=== PATIENT | male | born 1980 | race Caucasian/White ===

== ENCOUNTER → 2018-12-06 14:06 | Outpatient (CLI) | payer BC, SELFPAY ==
[2018-12-06 09:01] VITALS: BMI 29.9
== END ==
PROVIDERS: Referring Provider Physician Assistant Surgical; Visit Provider Physician Assistant Surgical
DX: J02.9 Acute pharyngitis, unspecified (principal)
CPT/HCPCS: 87081

== ENCOUNTER → 2018-12-18 13:54 | Outpatient (CLI) | payer BC, SELFPAY ==
[2018-12-18 10:50] VITALS: BMI 29.9
== END ==
PROVIDERS: Referring Provider Physician Assistant; Visit Provider Physician Assistant
DX: J02.9 Acute pharyngitis, unspecified (principal)
CPT/HCPCS: 87081

== ENCOUNTER 2021-05-01 22:35 | Emergency (ER) | payer OTHER, SELFPAY ==
[2020-01-11 09:58] VITALS: BMI 29.9
[2021-05-01 22:35] VITALS: BP 162/100; PULSE 79; RESP 16; TEMP 36.8; O2SAT 99; BMI 32.3
--- NOTE | 2021-05-01 22:54 | CT_ITS ---
STUDY: CT ABDOMEN AND PELVIS WITHOUT CONTRAST REASON FOR EXAM: Male, 41 years old. Left flank pain RADIATION DOSAGE (If Supplied By Facility): CTDIvol = ( 12.99 ) mGy, DLP = ( 720.59 ) mGycm TECHNIQUE: Transaxial images were obtained from the dome of the diaphragm to the symphysis pubis without oral contrast, and without intravenous contrast. Sagittal and coronal images were reconstructed. Individualized dose optimization techniques were used for this CT. COMPARISON: None. FINDINGS: There is mild atelectasis in the visualized posterior lung bases. The visualized portions of the heart are within normal limits. There is a 4 x 5.3 cm low-attenuation space-occupying lesion in the posterior right lobe of the liver. Normal gallbladder and extrahepatic biliary system. There is mild splenomegaly. Normal pancreas. Normal bilateral adrenal glands. Normal right kidney. As seen on axial image 65, there is a 2 mm nonobstructive left upper pole renal calculus.There is no demonstrated ureteral calculus or hydronephrosis. Normal visualized stomach. Normal small intestine. There are multiple colonic diverticula consistent with diverticulosis. There is diminutive normal appendix is seen on axial images 100-112. Normal abdominal aorta. Normal inferior vena cava. Normal retroperitoneum. Normal urinary bladder. Normal abdominal wall. Normal osseous structures. CT/Abdomen/Pelvis without Cont IMPRESSION: 5.3 cm space occupying lesion in the right lobe of the liver. Recommend multiphasic contrast enhanced CT scan or MRI for further characterization. Thank you nonobstructive left renal calculus. No demonstrated ureteral calculus or hydronephrosis. Colonic diverticulosis, without evidence for acute diverticulitis. Mild splenomegaly. No evidence for acute pathology. Electronically Signed: Nick Zimmerman MD at 0:30 EDT , Service support ,
[2021-05-01 23:09] LABS: Bacteria 0 SEEN /hpf (None Seen); Color, Urine Yellow (Yellow); Glucose, Dipstick Normal (Normal); Ketone-Dipstick 5 mg/dl (Negative); Leukocyte Esterase-Dipstick 25 /ul (Negative); Mucous, Urine 0 SEEN /hpf (<or=2+); Nitrite-Dipstick Negative (Negative); Occult Blood-Urine 150 /ul (Negative); Protein-Dipstick 15 mg/dl (Negative); Urine Bilirubin Dipstick Negative (Negative); Urine Clarity Clear (Clear); Urine Urobilinogen Normal (Normal)
[2021-05-01] MEDS: 0.9% Normal Saline 1,000 ML 1000 ML IV (23:09)
[2021-05-01] MEDS: Morphine 4 MG/ML Syringe IV (23:09)
[2021-05-01] MEDS: Ondansetron 4 MG/2 ML Vial IV (23:09)
[2021-05-01 23:11] LABS: Absolute Lymphocyte Count 4.09 X10^3/uL (0.83-4.51); Basophil# 0.08 X10^3/uL; Basophil% 0.8 % (0-1); Eosinophil# 0.63 X10^3/uL; Eosinophils% 6.5 % (0-5); Hematocrit 48.3 % (40-54); Hemoglobin 15.9 g/dL (13.0-16.5); Lymphocyte # 4.09 X10^3/ul (0.83-4.51); Lymphocyte % 42.3 % (19-41); Mean Corp Hgb Conc 32.9 g/dL (32-36); Mean Corpuscular Hgb 29.8 pg (27.0-32.0); Mean Corpuscular Volume 90.4 fL (80-94); Mean Platelet Vol. 10.5 fl (6.2-12.0); Monocyte# 0.81 X10^3/uL; Monocyte% 8.4 % (0-10); NRBC Flagged by Analyzer 0 % (0-5); Neutrophil # 4.03 X10^3/uL (2.7-7.7); Neutrophil % 41.6 % (47-70); Platelet Count 311 K/mm3 (150-450); RBC Distribution Width CV 12.7 % (11.6-14.6); RBC Distribution Width SD 41.8 fl (35.1-43.9); Red Blood Count 5.34 M/mm3 (4.6-6.2); White Blood Count 9.7 K/mm3 (4.4-11.0)
[2021-05-01 23:18] LABS: Red Blood Cells-Urine 5-10 SEEN /hpf (0-5); Squamous Epithelial Cells - UA 0-5 SEEN /hpf (0-5); White Blood Cells 0-5 SEEN /hpf (0-5)
--- NOTE | 2021-05-01 23:38 | EDS_ITS ---
HPI History of Present Illness Chief Complaint: Flank Pain Informant: patient Onset/Context/Timing Onset: Today Context: Sudden Onset Timing: Continuous Quality: Stabbing Location: Left flank Worsened by: Nothing Relieved by: Nothing Narrative Narrative: Patient presents with left flank pain that began today. Patient states it began approximately 1-1/2 hours prior to arrival. Patient states it has been constant. Patient states it is stabbing. Patient states it is localized to the left flank. Patient denies any radiation of the pain. Patient states nothing makes it better and nothing makes it worse. Patient denies any fevers or chills. Patient admits to nausea but denies any vomiting. Patient is unable to find a position of comfort. [facility] Medical History Kidney stones Home Medications lansoprazole [Prevacid] 15 mg PO DAILY 05/01/21 [History Last Taken Unknown] Allergy/AdvReac Type Severity Reaction Status Date / Time No Known Allergies Allergy Unverified 05/01/21 22:40 Social History Smoking Status: Never smoker ROS ROS ED Constitutional Constitutional ED: Denies chills or fever(s) Eyes Eyes: Denies blurry vision or change in vision ENT ENT ED: Denies rhinorrhea or sore throat Cardiovascular Cardiovascular: Denies chest pain or palpitations Respiratory/Chest Respiratory/Chest: Denies cough or dyspnea Gastrointestinal Gastrointestinal: Reports nausea; Denies vomiting Genitourinary Genitourinary ED: Denies dysuria or hematuria Musculoskeletal Musculoskeletal: Denies back pain or neck pain Integumentary Denies abscess or rash Neurologic Neurologic: Denies headache(s) or weakness Allergic/Immunologic Allergic/Immunologic ED: Denies mouth swelling or urticaria EXAM Physical Exam Const Vital Signs: 05/01/21 22:35 Temperature 98.2 F Temperature Source Temporal Pulse Rate 79 Respiratory Rate 16 Blood Pressure 162/100 H Blood Pressure Mean 120 Pulse Ox 99 Oxygen Delivery Method Room Air Positive well nourished and well developed General Appearance ED: well developed HEENT Reports moist mucous membranes Neck supple and no JVD Resp normal respiratory effort and clear to auscultation bilaterally Cardio regular rate and regular rhythm GI non-tender Palpation: soft Back/Spine General Back: CVA tenderness left Neuro oriented x3, CN's II-XII intact bilaterally and no sensory deficits noted Sensorium / Orientation: alert Motor Exam: strength 5/5 throughout Psych mental status grossly normal MDM MDM MDM Narrative Medical decision making narrative: Patient was given IV fluids, morphine, and Zofran. CBC and comprehensive metabolic profile were obtained and were essentially within normal limits. Urinalysis does not show any evidence of urinary tract infection. There is occult blood of 150 with 5-[address] scan of the abdomen pelvis was obtained. There is no obstructive uropathy noted. There is a nonobstructing left renal calculus. There is diverticulosis but no diverticulitis. There is a 5.3 cm space-occupying lesion in the right lobe of the liver. Follow-up was recommended. Patient was advised of his findings. Patient was instructed to follow-up with his primary care physician in 3 to 5 days. Patient was instructed to drink plenty of fluids. Patient was instructed to return if worse in any way. Patient understood and was agreeable with the plan. All questions were answered. Lab Data Labs: Laboratory Results - last 24 hr 05/01/21 05/01/21 05/01/21 22:44 22:44 22:44 WBC 9.7 RBC 5.34 Hgb 15.9 Hct 48.3 MCV 90.4 MCH 29.8 MCHC 32.9 RDW Std Deviation 41.8 RDW Coeff of [place] 12.7 Plt Count 311 MPV 10.5 Immature Gran % (Auto) 0.400 Neut % (Auto) 41.6 L Lymph % (Auto) 42.3 H Delta % (Auto) 8.4 Eos % (Auto) 6.5 H Baso % (Auto) 0.8 Absolute Neuts (auto) 4.0 Absolute Lymphs (auto) 4.09 Nucleated RBC % 0 Sodium 139 Potassium 5.0 Chloride 105 Carbon Dioxide 28.0 Anion Gap 6 BUN 13 Creatinine 1.43 H Estim Creat Clear Calc 68.77 Est GFR (MDRD) Af Amer 69 Est GFR (MDRD) Non-Af 57 L BUN/Creatinine Ratio 9.1 L Glucose 94 Calcium 8.8 Total Bilirubin 0.50 AST 48 H ALT 45 Alkaline Phosphatase 63 Total Protein 7.8 Albumin 4.0 Globulin 3.8 Albumin/Globulin Ratio 1.1 Urine Color Yellow Urine Clarity Clear Urine pH 5.0 Ur Specific [place] 1.030 Urine Protein 15 H Urine Glucose (UA) Normal Urine Ketones 5 H Urine Occult Blood 150 H Urine Nitrite Negative Urine Bilirubin Negative Urine Urobilinogen Normal Ur Leukocyte Esterase 25 H Urine RBC 5-10 SEEN Urine WBC 0-5 SEEN Ur Squamous Epith Cells 0-5 SEEN Urine Bacteria 0 SEEN Urine Mucus 0 SEEN Radiography Diagnostic Testing: Radiology Impression Abdomen/Pelvis CT 05/01/21 22:54 IMPRESSION: 5.3 cm space occupying lesion in the right lobe of the liver. Recommend multiphasic contrast enhanced CT scan or MRI for further characterization. Thank you nonobstructive left renal calculus. No demonstrated ureteral calculus or hydronephrosis. Colonic diverticulosis, without evidence for acute diverticulitis. Mild splenomegaly. No evidence for acute pathology. Electronically Signed: Nick Zimmerman MD at 0:30 EDT , Service support , Discharge Plan Triage Chief Complaint: Flank Pain ED Provider: Easton Cummins Dx/Rx/DC Orders Clinical Impression: Acute left flank pain Instructions: ED Flank Pain, Uncertain Cause Prescriptions: No Action lansoprazole [Prevacid] 15 mg Capsule,Delayed Release(Dr/Ec) 15 mg PO DAILY RF: 0 Primary Care Provider: Care Physician,No Primary Referrals: Supriya Hicks MD [STAFF PHYSICIAN] - 5-7 Days Care Physician,No Primary [Primary Care Provider] - Disposition Disposition: Home, Self Care Discharge Date/Time: 05/02/21 02:51
[2021-05-01 23:48] LABS: ALB/GLOB Ratio 1.1 RATIO (0.9-2.4); AST(SGOT) 48 U/L (15-37); Alanine Aminotransfer ALT/SGPT 45 U/L (16-61); Alkaline Phosphatase 63 U/L (45-117); Anion Gap 6 (5-15); BUN 13 mg/dL (7-18); BUN/Creat Ratio 9.1 RATIO (10-20); Calcium,Total 8.8 mg/dL (8.5-10.1); Chloride 105 mmol/L (98-107); Creatinine, Serum 1.43 mg/dL (0.70-1.30); EST Glomerular Filtration Rate 57 mL/min (>60); Est Glom Filt Rate - Afr Amer 69 mL/min (>60); Estimated Creatinine Clearance 68.77 ml/min; Globulin 3.8 g/dL (2.2-4.2); Glucose 94 mg/dL (74-106); Protein, Total 7.8 g/dL (6.4-8.2); Sodium Level 139 mmol/L (136-145)
[2021-05-02 02:50] VITALS: BP 132/88; PULSE 78; RESP 16; O2SAT 100
== END 2021-05-02 02:51 | disposition home or self-care (01) ==
PROVIDERS: Emergency Provider Emergency Medicine
DX: R10.9 Unspecified abdominal pain (principal); R11.0 Nausea
CPT/HCPCS: 74176; 80053; 81001; 85025; 96361; 96374; 96375; 99282; J7030; J2405

== ENCOUNTER 2022-09-03 23:50 | Emergency (ER) | payer BC, SELFPAY ==
[2022-09-03 23:51] VITALS: BP 151/109; PULSE 70; RESP 28; TEMP 36.8; BMI 32.1
[2022-09-03 23:55] VITALS: BP 151/109; PULSE 70; RESP 28; TEMP 36.8
--- NOTE | 2022-09-04 00:12 | CT_ITS ---
EXAM: CT Abdomen And Pelvis W/O Contrast Injection HISTORY: Kidney Stone TECHNIQUE: CT Abdomen And Pelvis W/O Contrast Injection A radiation dose optimization technique was used for this scan. COMPARISON: CT abdomen and pelvis 05/01/2021 LIMITATIONS: None. FINDINGS: LOWER CHEST: Right lung base 4 mm pulmonary nodule (2-31), similar to the prior.. LIVER: Asymmetric hypoattenuation of the right hepatic lobe and redemonstration of a hypoattenuating 5 cm posterior right hepatic lesion, similar compared to the prior. GALLBLADDER/BILE DUCTS: Normal. PANCREAS: Normal. SPLEEN: Normal. ADRENAL GLANDS: Normal. KIDNEYS/URETERS/BLADDER: Mild right hydroureteronephrosis due to a 3 mm calculus at the right vesicoureteral junction. Urinary bladder is decompressed, limiting evaluation.. RETROPERITONEUM/AORTA: Normal. BOWEL/MESENTERY: No bowel dilatation or bowel wall thickening. Scattered colonic diverticulosis without discrete evidence of acute diverticulitis. APPENDIX: Identified and normal. PERITONEUM: Normal. REPRODUCTIVE ORGANS: Normal. BONES/SOFT TISSUES: Gynecomastia. No acute osseous abnormality. OTHER: None. CT/Abdomen/Pelvis without Cont IMPRESSION: 1. Mild right hydroureteronephrosis due to a 3 mm calculus at the right vesicoureteral junction. 2. Right lower lobe 4 mm pulmonary nodule, similar compared to the prior. 3. Asymmetric hypoattenuation of the liver and 5 cm posterior right hepatic lesion, similar compared to the prior. If not previously characterized, further evaluation with MRI abdomen with contrast is recommended. *Fleischner Society Recommendations (Radiology 2005;[id number].) (Follow-up and management of nodules smaller than 8 mm detected incidentally at non-screening CT. Newly detected indeterminate nodule in persons 35 years of age or older.) Low risk patient: Minimal or absent history of smoking and of other known risk factors. <= 4mm: No followup needed >4-6mm: Follow-up CT at 12 months, if unchanged - no further followup >6-8mm: Initial Follow-up CT at 6-12 months, then at 18-24 months if no change >8mm: Follow-up CT at 3, 9, and 24 months; FDG PET scan; and or biopsy High risk patient: History of smoking or of other known risk factors. <= 4mm: Follow-up CT at 12 months, if unchanged - no further followup >4-6mm: Initial Follow-up CT at 6-12 months, then at 18-24 months if no change >6-8mm: Initial Follow-up CT at 3-6 months, then at 9-12 and 24 months if no change >8mm: Follow-up CT at 3, 9, and 24 months; FDG PET scan; and or biopsy Note: Non-solid (ground-glass) or partly solid nodules may require longer follow-up to Electronically Signed: Roosevelt Vargas MD at 1:26 EST ,
--- NOTE | 2022-09-04 00:13 | EDS_ITS ---
HPI History of Present Illness Chief Complaint: Flank Pain Detail of Chief Complaint: Right flank pain Informant: patient Onset/Context/Timing Onset: Yesterday Context: Gradual Onset Timing: Continuous and Waxes and wanes Current Severity: Moderate Maximum Severity: Severe Narrative Narrative: Patient presents with rather abrupt onset of right flank pain approximately 2 hours ago. Patient has a history of kidney stones that feels similar. He reports nausea and dry heaves associated with pain. He has not taken anything for pain at this time. Patient states in the past he was been able to pass his kidney stones. [facility] Medical History Kidney stones Home Medications lansoprazole 15 mg capsule,delayed release (Prevacid) 15 mg PO DAILY 05/01/21 [History Last Taken Unknown] hydrocodone-acetaminophen 5-325mg 5mg-325mg 1 tab PO Q6H PRN pain 3 days #10 tabs 09/04/22 [Rx Last Taken Unknown] ibuprofen 800 mg tablet 800 mg PO Q8H PRN pain #20 tabs 09/04/22 [Rx Last Taken Unknown] ondansetron 4 mg disintegrating tablet 4 mg PO Q8H PRN nausea and vomiting #10 tabs 09/04/22 [Rx Last Taken Unknown] Allergy/AdvReac Type Severity Reaction Status Date / Time No Known Allergies Allergy Unverified 05/01/21 22:40 Social History Smoking Status: Never smoker ROS ROS ED Constitutional Constitutional ED: Denies chills or fever(s) Eyes Eyes: Denies change in vision or discharge from eye(s) ENT ENT ED: Denies discharge from eye(s), rhinorrhea or sore throat Cardiovascular Cardiovascular: Denies chest pain or palpitations Respiratory/Chest Respiratory/Chest: Denies cough or dyspnea Gastrointestinal Gastrointestinal: Reports abdominal pain and nausea; Denies diarrhea Genitourinary Genitourinary ED: Denies difficulty urinating or dysuria Musculoskeletal Musculoskeletal: Reports back pain; Denies extremity pain Integumentary Denies Abrasions or rash Neurologic Neurologic: Denies headache(s) or weakness Psychiatric Psychiatric: Denies anxiety or depression Allergic/Immunologic Allergic/Immunologic ED: Denies lip swelling or urticaria EXAM Physical Exam Const Vital Signs: 09/03/22 23:51 09/03/22 23:55 Temperature 98.3 F 98.3 F Temperature Source Oral Oral Pulse Rate 70 70 Respiratory Rate 28 H 28 H Blood Pressure 151/109 H 151/109 H Blood Pressure Mean 123 123 Positive well nourished and well developed General Appearance ED: well developed HEENT Reports normocephalic and head/scalp atraumatic Eyes PERRL and EOMs intact bilaterally Neck supple Chest Wall inspection of chest normal and palpation of chest normal Resp normal respiratory effort and clear to auscultation bilaterally Cardio regular rate and regular rhythm GI non-tender Palpation: soft Back/Spine General Back: CVA tenderness right Extremity normal to inspection Neuro oriented x3 and no sensory deficits noted Sensorium / Orientation: alert Motor Exam: strength 5/5 throughout Psych mental status grossly normal Skin no rashes or lesions noted MDM MDM MDM Narrative Medical decision making narrative: Patient was given Toradol, morphine, Zofran, IV fluids. Lab work obtained along with CT flank. Lab Data Attestation: I reviewed the patient's lab results. Labs: Laboratory Results - last 24 hr 09/04/22 09/04/22 00:40 00:40 WBC 13.1 H RBC 5.58 Hgb 16.3 Hct 49.5 MCV 88.7 MCH 29.2 MCHC 32.9 RDW Std Deviation 39.4 RDW Coeff of [place] 12.1 Plt Count 379 MPV 10.3 Immature Gran % (Auto) 1.800 H Neut % (Auto) 67.9 Lymph % (Auto) 20.6 [place] % (Auto) 5.8 Eos % (Auto) 3.3 Baso % (Auto) 0.6 Absolute Neuts (auto) 8.9 H Absolute Lymphs (auto) 2.71 Nucleated RBC % 0 Sodium 141 Potassium 4.1 Chloride 108 H Carbon Dioxide 26.0 Anion Gap 7 BUN 12 Creatinine 1.47 H Estim Creat Clear Calc 64.13 Est GFR (MDRD) Af Amer 67 Est GFR (MDRD) Non-Af 55 L BUN/Creatinine Ratio 8.2 L Glucose 128 H Calcium 9.3 Radiography Diagnostic Testing: Clinical Impression(s) from Imaging Studies Abdomen/Pelvis CT 09/04/22 00:12 IMPRESSION: 1. Mild right hydroureteronephrosis due to a 3 mm calculus at the right vesicoureteral junction. 2. Right lower lobe 4 mm pulmonary nodule, similar compared to the prior. 3. Asymmetric hypoattenuation of the liver and 5 cm posterior right hepatic lesion, similar compared to the prior. If not previously characterized, further evaluation with MRI abdomen with contrast is recommended. *Fleischner Society Recommendations (Radiology 2005;[id number].) (Follow-up and management of nodules smaller than 8 mm detected incidentally at non-screening CT. Newly detected indeterminate nodule in persons 35 years of age or older.) Low risk patient: Minimal or absent history of smoking and of other known risk factors. <= 4mm: No followup needed >4-6mm: Follow-up CT at 12 months, if unchanged - no further followup >6-8mm: Initial Follow-up CT at 6-12 months, then at 18-24 months if no change >8mm: Follow-up CT at 3, 9, and 24 months; FDG PET scan; and or biopsy High risk patient: History of smoking or of other known risk factors. <= 4mm: Follow-up CT at 12 months, if unchanged - no further followup >4-6mm: Initial Follow-up CT at 6-12 months, then at 18-24 months if no change >6-8mm: Initial Follow-up CT at 3-6 months, then at 9-12 and 24 months if no change >8mm: Follow-up CT at 3, 9, and 24 months; FDG PET scan; and or biopsy Note: Non-solid (ground-glass) or partly solid nodules may require longer follow-up to Electronically Signed: Roosevelt Vargas MD at 1:26 EST , Treatment and Re-Evaluation Narrative: Lab work significant for white count of 13.1 with no abnormal differential. Chemistry studies reveal creatinine 1.47. This is consistent with his prior values. CT flank reveals mild right hydro with a 3 mm calculus at the right UVJ. On repeat evaluation patient reports his pain has been resolved for the last half hour. I advised him that he may have passed the stone into the bladder, or he may just have had the spasm stop and it may recur. I will write him prescription for ibuprofen, Zofran, [place]. He is referred to Dr. Palacio as needed. Return instructions given. Discharge Plan Triage Chief Complaint: Flank Pain ED Provider: Noemy Hernandez Dx/Rx/DC Orders Clinical Impression: Ureterolithiasis Instructions: ED Kidney Stone w/ Colic Prescriptions: New ibuprofen 800 mg tablet 800 mg PO Q8H PRN (Reason: pain) Qty: 20 0RF ondansetron 4 mg tablet,disintegrating 4 mg PO Q8H PRN (Reason: nausea and vomiting) Qty: 10 0RF hydrocodone-acetaminophen 5-325 mg tablet 1 tab PO Q6H PRN (Reason: pain) 3 Days Qty: 10 0RF No Action lansoprazole [Prevacid] 15 mg Capsule,Delayed Release(Dr/Ec) 15 mg PO DAILY Primary Care Provider: Jerzy Lawrence Referrals: Sinan Palacio MD [Med Staff - Active Staff] - As Needed Care Physician,No Primary [Non-Staff] - Disposition Disposition: Home, Self Care
[2022-09-04] MEDS: Ketorolac 30 MG/ML Syringe IV (00:42)
[2022-09-04] MEDS: Ondansetron 4 MG/2 ML Vial IV (00:42)
[2022-09-04] MEDS: Morphine 4 MG/ML Syringe IV (00:43)
[2022-09-04] MEDS: 0.9% Normal Saline 1,000 ML 250 ML IV (00:44)
[2022-09-04 00:49] LABS: Absolute Lymphocyte Count 2.71 X10^3/uL (0.83-4.51); Absolute Neutrophil Count 8.9 X10^3/uL (2.0-7.7); Basophil# 0.08 X10^3/uL; Basophil% 0.6 % (0-1); Eosinophil# 0.43 X10^3/uL; Eosinophils% 3.3 % (0-5); Hematocrit 49.5 % (40-54); Hemoglobin 16.3 g/dL (13.0-16.5); Lymphocyte # 2.71 X10^3/ul (0.83-4.51); Lymphocyte % 20.6 % (19-41); Mean Corp Hgb Conc 32.9 g/dL (32-36); Mean Corpuscular Hgb 29.2 pg (27.0-32.0); Mean Corpuscular Volume 88.7 fL (80-94); Mean Platelet Vol. 10.3 fl (6.2-12.0); Monocyte# 0.76 X10^3/uL; Monocyte% 5.8 % (0-10); NRBC Flagged by Analyzer 0 % (0-5); Neutrophil # 8.92 X10^3/uL (2.7-7.7); Neutrophil % 67.9 % (47-70); Platelet Count 379 K/mm3 (150-450); RBC Distribution Width CV 12.1 % (11.6-14.6); RBC Distribution Width SD 39.4 fl (35.1-43.9); Red Blood Count 5.58 M/mm3 (4.6-6.2); White Blood Count 13.1 K/mm3 (4.4-11.0)
[2022-09-04 01:00] LABS: Anion Gap 7 (5-15); BUN 12 mg/dL (7-18); BUN/Creat Ratio 8.2 RATIO (10-20); Calcium,Total 9.3 mg/dL (8.5-10.1); Chloride 108 mmol/L (98-107); Creatinine, Serum 1.47 mg/dL (0.70-1.30); EST Glomerular Filtration Rate 55 mL/min (>60); Est Glom Filt Rate - Afr Amer 67 mL/min (>60); Estimated Creatinine Clearance 64.13 ml/min; Glucose 128 mg/dL (74-106); Potassium 4.1 mmol/L (3.5-5.1); Sodium Level 141 mmol/L (136-145)
[2022-09-04 02:28] VITALS: BP 133/92
== END 2022-09-04 02:31 | disposition home or self-care (01) ==
PROVIDERS: Emergency Provider Emergency Medicine; PCP Physician Assistant; Visit Provider Emergency Medicine
DX: N13.2 Hydronephrosis with renal and ureteral calculous obstruction (principal); Z87.442 Personal history of urinary calculi
CPT/HCPCS: 74176; 80048; 85025; 96361; 96374; 96375; 99282; J7030; A4216; J2405